=== PATIENT | female | born 1990 | race Caucasian/White ===

== ENCOUNTER 2017-10-11 13:35 | Inpatient (IN) | payer BC ==
[~2017-10-11] VITALS: Ht 165.1 cm; Wt 77.7 kg
[2017-10-11 14:09] VITALS: BP 119/69
[2017-10-11] MEDS ORDERED: OXYTOCIN 30U/ 0.9% NaCL 500ML 500 ML IV ONE (14:45)
[2017-10-11] MEDS: D5%-LACTATED RINGERS 1,000 ML IV SCH ×2 (14:45→22:29)
[2017-10-11] MEDS ORDERED: AMPICILLIN 2 GM in SODIUM CHLORIDE 0.9% 100 ML IVPB STA (14:45)
[2017-10-11] MEDS ORDERED: ONDANSETRON 2MG/ML, 2ML IVPush PRN (15:00)
[2017-10-11] MEDS ORDERED: METOCLOPRAMIDE 5 MG/ML, 2ML IVPush PRN (15:00)
[2017-10-11] MEDS ORDERED: SODIUM CITRATE/CITRIC ACID 30 ML UDC PO PRN (15:00)
[2017-10-11] MEDS ORDERED: TERBUTALINE 1 MG/ML, 1ML IVPush PRN (15:00)
[2017-10-11] MEDS ORDERED: FENTANYL PF 100 MCG/2ML IV PRN (15:00)
[2017-10-11] MEDS: LACTATED RINGERS 1,000 ML IV SCH ×4 (15:01→21:12)
[2017-10-11] MEDS ORDERED: NEWBORN KIT ONE (15:05)
[2017-10-11] MEDS ORDERED: OXYTOCIN 30U/ 0.9% NaCL 500ML 500 ML ONE (15:06)
[2017-10-11] MEDS ORDERED: MISOPROSTOL 200 MCG TABLET ONE (15:06)
[2017-10-11] MEDS ORDERED: LIDOCAINE 1%, 20ML ONE (15:06)
[2017-10-11 15:22] LABS: BASOPHILS # (AUTO) 0.04 x10^3/uL (0-0.1); BASOPHILS % (AUTO) 0 % (0-1); EOSINOPHILS # (AUTO) 0.02 x10^3/uL (0-0.4); EOSINOPHILS % (AUTO) 0 % (1-7); LYMPHOCYTES # (AUTO) 1.76 x10^3/uL (1-3.4); LYMPHOCYTES % (AUTO) 17 % (22-44); MD NO; MEAN PLATELET VOLUME 9.4 fL (7.4-10.4); MONOCYTES # (AUTO) 0.34 x10^3/uL (0.2-0.8); MONOCYTES % (AUTO) 3 % (2-9); NEUTROPHILS # (AUTO) 8.15 x10^3/uL (1.8-6.8); NEUTROPHILS % (AUTO) 79 % (42-75); PLATELET COUNT 246 x10^3/uL (130-400); RED BLOOD COUNT 4.23 x10^6/uL (3.82-5.3); RED CELL DISTRIBUTION WIDTH 16.7 % (9.6-15.2)
[2017-10-11] MEDS ORDERED: FENTANYL PF 100 MCG/2ML ONE ×2 (18:11→19:15)
[2017-10-11] MEDS: FENTANYL PF 100 MCG/2ML IVPush PRN ×2 (18:13→19:23)
[2017-10-11] MEDS: AMPICILLIN 1 GM in SODIUM CHLORIDE 0.9% 50 ML IVPB SCH ×2 (19:00→22:45)
[2017-10-11 19:41] VITALS: BP 123/78
[2017-10-11] MEDS ORDERED: LACTATED RINGERS 1,000 ML IV SCH (19:55)
[2017-10-11] MEDS ORDERED: FENTANYL/BUPIV./NS/PF 250 ML EPIDCONT SCH ×2 (19:55)
[2017-10-11] MEDS ORDERED: BUPIVACAINE 0.25% ONE (19:56)
[2017-10-11] MEDS ORDERED: FENTANYL/BUPIV./NS/PF 250 ML EPIDCONT ONE (19:57)
[2017-10-11] MEDS ORDERED: BUPIVACAINE/PF 0.25% ONE (19:57)
[2017-10-11] MEDS ORDERED: NALOXONE 0.4 MG/ML, 1ML IVPush PRN ×2 (20:00)
[2017-10-11] MEDS ORDERED: EPHEDRINE 50 MG/ML, 1ML IVPush PRN ×2 (20:00)
[2017-10-11] MEDS ORDERED: LACTATED RINGERS 1,000 ML IVBOLUS PRN ×2 (20:00)
[2017-10-11] MEDS ORDERED: ONDANSETRON 2MG/ML, 2ML ONE (22:30)
[2017-10-12] MEDS: AMPICILLIN 1 GM in SODIUM CHLORIDE 0.9% 50 ML IVPB SCH (02:45)
[2017-10-12] MEDS ORDERED: OXYTOCIN 30U/ 0.9% NaCL 500ML 500 ML IV SCH (06:21)
[2017-10-12] MEDS ORDERED: OXYTOCIN 30U/ 0.9% NaCL 500ML 500 ML ONE (06:27)
[2017-10-12] MEDS ORDERED: CARBOPROST TROMETHAMINE 250 MCG/ML, 1ML IM PRN (06:30)
[2017-10-12] MEDS ORDERED: METOCLOPRAMIDE 5 MG/ML, 2ML IV PRN (06:30)
[2017-10-12] MEDS ORDERED: ONDANSETRON 2MG/ML, 2ML IV PRN (06:30)
[2017-10-12] MEDS ORDERED: GLYCERIN ADULT SUPP PR PRN (06:30)
[2017-10-12] MEDS ORDERED: ACETAMINOPHEN 325 MG TABLET PO PRN (06:30)
[2017-10-12] MEDS ORDERED: BISACODYL 10 MG SUPP PR PRN (06:30)
[2017-10-12] MEDS ORDERED: IBUPROFEN 800 MG TABLET PO PRN (06:30)
[2017-10-12] MEDS ORDERED: METHYLERGONOVINE 0.2 MG/ML IM PRN (06:30)
[2017-10-12] MEDS ORDERED: OXYcodone/APAP 5/325MG TABLET PO PRN (06:30)
[2017-10-12] MEDS ORDERED: MISOPROSTOL 200 MCG TABLET PR PRN (06:30)
[2017-10-12] MEDS ORDERED: OXYcodone/APAP 5/325MG TABLET ONE (06:55)
[2017-10-12] MEDS: OXYcodone/APAP 5/325MG TABLET PO PRN (07:01)
[2017-10-12] MEDS ORDERED: PREN1TAB60 PO (07:41)
[2017-10-12] MEDS: LACTATED RINGERS 1,000 ML IV SCH (08:10)
[2017-10-12] MEDS: PRENATAL VIT/IRON/FA 1 EACH TABLET PO SCH (09:00)
[2017-10-12 10:05] VITALS: BP 98/57
[2017-10-12 14:29] LABS: MEAN CORPUSCULAR HEMOGLOBIN 27.7 pg (27.0-34.8); MEAN CORPUSCULAR HGB CONC 33.6 g/dL (32.4-35.8); MEAN CORPUSCULAR VOLUME 82.5 fL (80-100); PLATELET COUNT 188 x10^3/uL (130-400); RED BLOOD COUNT 3.58 x10^6/uL (3.82-5.3); RED CELL DISTRIBUTION WIDTH 16.8 % (9.6-15.2)
[2017-10-12 15:03] LABS: MD YES
[2017-10-12 15:05] LABS: BAND#(MANUAL) 2.57 x10^3/uL; BANDS%(MANUAL) 15 % (0-7); LYMPH#(MANUAL) 0.86 x10^3/uL (1-3.4); LYMPHS% (MANUAL) 5 % (22-44); MONOS#(MANUAL) 0.68 x10^3/uL (0.3-2.7); MONOS% (MANUAL) 4 % (2-9); REACTIVE LYMPHS # (MANUAL) 0.34 x10^3/uL (0-0); REACTIVE LYMPHS % (MANUAL) 2 % (0-0); SEG#(MANUAL) 12.65 x10^3/uL (1.8-6.8); SEGS% (MANUAL) 74 % (42-75)
[2017-10-12 15:06] LABS: <PLATELET ESTIMATE> ADEQUATE; ANISOCYTOSIS 1+; LARGE PLATELETS 1+; POLYCHROMASIA 1+
[2017-10-12 15:21] VITALS: BP 104/67
[2017-10-12 20:00] VITALS: BP 104/68
[2017-10-13] MEDS: OXYcodone/APAP 5/325MG TABLET PO PRN ×3 (00:07→21:11)
[2017-10-13] MEDS: DOCUSATE 100 MG CAPSULE PO PRN ×2 (00:07→08:45)
[2017-10-13] MEDS: IBUPROFEN 600 MG TABLET PO PRN ×3 (00:07→21:11)
[2017-10-13 00:10] VITALS: BP 105/62
[2017-10-13 08:01] VITALS: BP 110/70
[2017-10-13] MEDS: PRENATAL VIT/IRON/FA 1 EACH TABLET PO SCH (08:45)
[2017-10-13 18:32] VITALS: BP 114/70
[2017-10-13 19:20] VITALS: BP 106/64
[2017-10-14] MEDS: OXYcodone/APAP 5/325MG TABLET PO PRN ×2 (03:43→08:09)
[2017-10-14] MEDS: IBUPROFEN 600 MG TABLET PO PRN (03:44)
[2017-10-14 07:50] VITALS: BP 119/72
[2017-10-14] MEDS: DOCUSATE 100 MG CAPSULE PO PRN (08:09)
[2017-10-14] MEDS: PRENATAL VIT/IRON/FA 1 EACH TABLET PO SCH (08:09)
[2017-10-14] MEDS ORDERED: IBUP-1223 PO (13:00)
== END 2017-10-14 13:41 | disposition home or self-care (01) | DRG 775 ==
LOC: LDOP 13:35 → LDIP 14:40 → 2NW 10-12 10:04
PROVIDERS: ADMIT Obstetrics & Gynecology; ATTEND Obstetrics & Gynecology
PROC: 10E0XZZ Delivery of Products of Conception, External Approach (ICD-10-PCS; principal; 2017-10-12)
PROC: 10907ZC Drainage of Amniotic Fluid, Therapeutic from Products of Conception, Via Natural or Artificial Opening (ICD-10-PCS; 2017-10-12)
PROC: 3E0R3BZ Introduction of Anesthetic Agent into Spinal Canal, Percutaneous Approach (ICD-10-PCS; 2017-10-12)
PROC: 00HU33Z Insertion of Infusion Device into Spinal Canal, Percutaneous Approach (ICD-10-PCS; 2017-10-12)
DX: O99.824 Streptococcus B carrier state complicating childbirth (principal); O69.81X0 Labor and delivery complicated by cord around neck, without compression, not applicable or unspecified; O77.0 Labor and delivery complicated by meconium in amniotic fluid; Z3A.40 40 weeks gestation of pregnancy; Z37.0 Single live birth
CPT/HCPCS: 36415; 85025; 86850; 86900; J0290; J2405; J3010; J3490; J2590; J7120; J7121

== ENCOUNTER → 2019-06-18 | Outpatient (CLI) | payer BC, OTHER ==
[~2019-06-18] MED LIST: IBUP-1223 PO; PREN1TAB60 PO
== END | disposition home or self-care (01) ==
LOC: RAD 10:19
PROVIDERS: ATTEND Family Medicine
DX: D49.2 Neoplasm of unspecified behavior of bone, soft tissue, and skin (principal); C79.9 Secondary malignant neoplasm of unspecified site
CPT/HCPCS: 78306; A9503

== ENCOUNTER 2019-06-27 20:46 | Emergency (ER) | payer BC, OTHER ==
[~2019-06-27] VITALS: Ht 165.1 cm; Wt 76.0 kg
[2019-06-27 20:49] VITALS: BP 113/69
--- NOTE | 2019-06-27 20:52 | NUR ---
PT AWARE TO BE NPO AT THIS TIME, LAST INTAKE 1 HOUR AGO.
--- NOTE | 2019-06-27 21:04 | NUR ---
PT TO ROOM PLACED IN GOWN AWAITING ERP AND ORDERS.
[2019-06-27 21:51] LABS: BASOPHILS # (AUTO) 0.05 x10^3/uL (0-0.1); BASOPHILS % (AUTO) 1 % (0-1); EOSINOPHILS # (AUTO) 0.22 x10^3/uL (0-0.4); EOSINOPHILS % (AUTO) 4 % (1-7); LYMPHOCYTES % (AUTO) 31 % (22-44); MD NO; MEAN CORPUSCULAR HEMOGLOBIN 26.9 pg (27.0-34.8); MEAN CORPUSCULAR HGB CONC 32.4 g/dL (32.4-35.8); MEAN CORPUSCULAR VOLUME 83.1 fL (80-100); MEAN PLATELET VOLUME 8.1 fL (7.4-10.4); MONOCYTES # (AUTO) 0.43 x10^3/uL (0.2-0.8); MONOCYTES % (AUTO) 7 % (2-9); NEUTROPHILS # (AUTO) 3.57 x10^3/uL (1.8-6.8); NEUTROPHILS % (AUTO) 58 % (42-75); PLATELET COUNT 314 x10^3/uL (130-400); RED BLOOD COUNT 4.51 x10^6/uL (3.82-5.3); RED CELL DISTRIBUTION WIDTH 17.8 % (9.6-15.2)
[2019-06-27] MEDS ORDERED: ONDANSETRON 2MG/ML, 2ML IVPush ONE (22:00)
[2019-06-27] MEDS ORDERED: MORPHINE SULFATE 4 MG/ML, 1ML IVPush PRN (22:00)
[2019-06-27 22:03] LABS: ALBUMIN 3.4 g/dL (3.4-5.0); ANION GAP 4 mmol/L (5-15); CALCIUM 8.5 mg/dL (8.5-10.1); CHLORIDE 111 mmol/L (98-107); CREATININE 0.72 mg/dL (0.55-1.02)
[2019-06-27] MEDS ORDERED: ONDANSETRON 2MG/ML, 2ML ONE (22:16)
[2019-06-27] MEDS ORDERED: MORPHINE SULFATE 4 MG/ML, 1ML ONE (22:16)
--- NOTE | 2019-06-27 22:25 | NUR ---
PT MEDICATED ASA ORDERED AND NOW AWAITING ERP RECHECK.
--- NOTE | 2019-06-27 22:47 | NUR ---
PT TO CT SCAN
--- NOTE | 2019-06-27 23:52 | NUR ---
PT AWAITING ERP RECHECK AND ADMIT
[2019-06-28] MEDS ORDERED: HYDROcodone/APAP 5/325 TABLET PO ONE (00:30)
[2019-06-28] MEDS ORDERED: HYDROcodone/APAP 5/325 TABLET ONE (00:45)
== END 2019-06-28 00:48 | disposition home or self-care (01) ==
LOC: ED 23:23
DX: M25.552 Pain in left hip (principal); D49.2 Neoplasm of unspecified behavior of bone, soft tissue, and skin
CPT/HCPCS: 36415; 73502; 73700; 80048; 82040; 84703; 85025; 96374; 96375; 99284; J2270; J2405

== ENCOUNTER 2019-07-07 11:23 | Day surgery (SDC) | payer BC, OTHER ==
[~2019-07-07] VITALS: Ht 165.1 cm; Wt 76.2 kg
[2019-07-07] MEDS ORDERED: NO MEDS PER PT (11:36)
[2019-07-07] MEDS ORDERED: SODIUM CHLORIDE 0.9% 1,000 ML IV ONE (11:36)
[2019-07-07 11:48] VITALS: BP 113/71
[2019-07-07] MEDS ORDERED: HYDR-3237 PO (11:50)
[2019-07-07] MEDS ORDERED: FLUMAZENIL 0.1 MG/1 ML, 5ML ONE (13:13)
[2019-07-07] MEDS ORDERED: NALOXONE 1 MG/ML, 2ML ONE (13:13)
[2019-07-07] MEDS ORDERED: FENTANYL PF 100 MCG/2ML ONE (13:13)
[2019-07-07] MEDS ORDERED: MIDAZOLAM 1 MG/ML, 5ML ONE (13:13)
[2019-07-07] MEDS ORDERED: LIDOCAINE-MPF 1%, 5ML ONE (13:35)
== END 2019-07-07 15:40 | disposition home or self-care (01) ==
LOC: OUT 11:23 → EDSTATUS 13:00 → OUT 15:40
PROVIDERS: ATTEND Family Medicine Sports Medicine
DX: R22.42 Localized swelling, mass and lump, left lower limb (principal); D16.22 Benign neoplasm of long bones of left lower limb
CPT/HCPCS: 20225; 77012; 88305; 99156; 99157; J2250; J3010; J7030; J2310

== ENCOUNTER 2019-10-08 13:40 | Outpatient (CLI) | payer BC, OTHER ==
[~2019-10-08 13:40] MED LIST changes: +HYDR-3237 PO; +NO MEDS PER PT
== END 2019-10-08 23:59 | disposition home or self-care (01) ==
LOC: CFH 13:40
PROVIDERS: ATTEND Family Medicine
DX: D16.22 Benign neoplasm of long bones of left lower limb (principal)
CPT/HCPCS: 71250

== ENCOUNTER → 2020-02-16 | Outpatient (CLI) | payer OTHER | END | disposition home or self-care (01) | LOC: RAD 17:54 | PROVIDERS: ATTEND Orthopaedic Surgery | DX: D48.0 Neoplasm of uncertain behavior of bone and articular cartilage (principal); M25.552 Pain in left hip | CPT/HCPCS: 71046 ==